=== PATIENT | male | born 1945 | race Caucasian/White ===

== ENCOUNTER 2019-12-07 12:46 | Emergency (ER) | payer OTHER ==
[~2019-12-07] VITALS: Ht 172.7 cm; Wt 73.0 kg
[2019-12-07 12:55] VITALS: BP 124/62
--- NOTE | 2019-12-07 13:28 | NUR ---
PT AMBULATED TO ER BED 06
--- NOTE | 2019-12-07 13:34 | NUR ---
74 Y/O M C/C HEMATOCHEZIA X 1 DAY. PER PT 4 BM EPISODES WITH BRIGHT RED BLOOD. NO PRIOR HX OF HEMATOCHEZIA. DENIES ABDOMINAL PAIN, HEMATURIA, HEMATEMESIS. BS NORMOACTIVE. PT VSS, NO RESPIRATORY DISTRESS, EUPNIC. NKA. HX HTN,PRE-DM,HDL. RX CLOPIDOGREL,CARVEDILOL,ASA,LASIX,LIPITOR. SIDE RAIL X1.
--- NOTE | 2019-12-07 13:38 | NUR ---
ERMD AT BEDSIDE
--- NOTE | 2019-12-07 13:53 | NUR ---
CT CONSENT OBTAINED, ON CHART
--- NOTE | 2019-12-07 14:03 | NUR ---
BLOOD DRAWN AND COLLECTED
--- NOTE | 2019-12-07 14:03 | NUR ---
PT RESTING IN BED, SIDE RAIL X1
[2019-12-07 14:14] LABS: BASOPHILS % (AUTO) 0.5 % (0.0-2.0); EOSINOPHILS # (AUTO) 0.2 K/uL (0-0.4); EOSINOPHILS % (AUTO) 2.7 % (0.0-4.0); HEMATOCRIT 37.7 % (36-52); HEMOGLOBIN 12.5 g/dL (12.0-18.0); MEAN CORPUSCULAR HEMOGLOBIN 31 pg (27-31); MEAN CORPUSCULAR HGB CONC 33 g/dL (33-37); MEAN CORPUSCULAR VOLUME 94.3 fL (80-94); MONOCYTES # (AUTO) 0.7 K/uL (0.8-1.0); NEUTROPHILS # (AUTO) 4.1 K/uL (1.8-7.7); NEUTROPHILS % (AUTO) 68.8 % (42.2-75.2); PLATELET COUNT (AUTO) 164 K/uL (140-450); RED CELL DISTRIBUTION WIDTH 14.2 % (11.6-13.7)
[2019-12-07] MEDS ORDERED: FURO-570 PO (14:19)
[2019-12-07] MEDS ORDERED: ATOR40TA PO (14:19)
[2019-12-07] MEDS ORDERED: ASPI-1822 PO (14:19)
[2019-12-07] MEDS ORDERED: CLOP75TA55 PO (14:19)
[2019-12-07] MEDS ORDERED: ISOS30TE68 PO (14:19)
[2019-12-07] MEDS ORDERED: CARV12.5 PO (14:19)
[2019-12-07] MEDS ORDERED: SYN.05 PO (14:22)
[2019-12-07] MEDS ORDERED: CARV3.12 PO (14:28)
[2019-12-07 14:36] LABS: ALBUMIN 3.4 g/dL (3.4-5.0); ANION GAP 12.1 (8-16); ASPARTATE AMINOTRANSFERASE 20 U/L (15-37); CHLORIDE 105 mmol/L (98-107); CREATININE 1.1 mg/dL (0.6-1.3); GLUCOSE 111 mg/dL (74-106); LIPASE 235 U/L (73-393); POTASSIUM 4.1 mmol/L (3.5-5.1); SODIUM SERUM 140 mmol/L (136-145); TOTAL BILIRUBIN 0.5 mg/dL (0.0-1.0); UREA NITROGEN, BLOOD 20 mg/dL (7-18)
--- NOTE | 2019-12-07 15:25 | NUR ---
Patient returned from CT scan. RN re-evaluating patient at bedside.
--- NOTE | 2019-12-07 16:05 | NUR ---
PT RR EVEN AND UNLABORED. PT RESTING IN BED, ALL NEEDS MET AT THIS TIME WILL CONTINUE TO MONITOR.
--- NOTE | 2019-12-07 16:29 | NUR ---
PT RESTING IN BED, SIDE RAIL X1
--- NOTE | 2019-12-07 17:48 | NUR ---
SPOKE TO WM FROM RECEIVING FACILITY [facility]. 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
--- NOTE | 2019-12-07 18:01 | NUR ---
SPOKE TO MEL PENN FROM RECEIVING FACILITY [facility]. BRIAN GIVEN ALL QUESTIONS ANSWERED. PENDING TRANSPORT OF PATIENT.
--- NOTE | 2019-12-07 18:04 | NUR ---
PT TO BE TRANSPORTED TO: ROOM: 442 ACCEPTING PHYSICIAN: DR. LAWTON PHONE: [phone]
--- NOTE | 2019-12-07 18:34 | NUR ---
REPORT GIVEN TO [facility]. PT STABLE FOR TRANSPORT. VSS. A/OX4. PT AWARE AND READY FOR TRANSFER.
[2019-12-07 18:35] VITALS: BP 142/68
--- NOTE | 2019-12-07 18:35 | NUR ---
Patient to be transferred to [facility]. Is being transferred due to FURTHER EVALUATION. Receiving facility has accepting physician and available space. ER physician has signed transfer form. Patient or responsible constitution party has agreed to transfer and signed form. Patient belongings inventoried and will be sent with patient. Copy of nursing notes, lab reports, EKG, Physicians Orders and X-rays to be sent with patient. Report called to ISAMAR LEAL at receiving facility. [facility] ambulance service has been called for transfer.
== END 2019-12-07 18:35 | disposition short-term general hospital (02) ==
LOC: MED 12:46
DX: K92.2 Gastrointestinal hemorrhage, unspecified (principal); Z79.899 Other long term (current) drug therapy
CPT/HCPCS: 36415; 74177; 80053; 83690; 85025; 86886; 86900; 86901; 99285; Q9967